=== PATIENT | female | born 1950 | race Caucasian/White ===

== ENCOUNTER → 2016-12-31 | Outpatient (CLI) | payer MEDICARE, BC ==
--- NOTE | ~2016-12-31 | MY11 ---
[facility] A Service of [facility] RADIOLOGY TEXT RESULTS PATIENT: JOLENE MERRILL LOCATION: [facility] : 48 UNIT #: [id number] AGE: [address]: Les Mondragon MD SEX: F ORDER DR: [id number] [facility] [address] [place], [place] [address] [id number] O MR#: [id number] Acc #: [id number] NAME: JOLENE MERRILL : 1950 SEX: F STUDY DATE/TIME: 12/31/2016 13:43 UNIT: [facility] ROOM: STUDY DESCRIPTION: MY Mammogram Screening Dig Mikey Attending Physician: Les Mondragon M.D. Ordering Physician: Les Mondragon M.D. Primary Care Physician: Les Mondragon M.D. MEDICAL IMAGING REPORT This report is preliminary unless electronic signature is present ADDENDUM Outside prior mammograms from [facility] have been obtained dated 06/14/2011. The left breast is unchanged from prior. On the right side, the nodule suggested only MLO view is unchanged and therefore benign. On the standard right CC view on the current study, there is still an asymmetry near the chest wall. A right exaggerated lateral CC view is still needed. True lateral view should be obtained as well. BIRADS: 0 Needs additional imaging evaluate and/or prior mammograms for comparison. JOB #: [id number] Dictated by... Dean Patel Jr., M.D. THIS IS AN ELECTRONICALLY VERIFIED REPORT Dean Patel Jr., M.D. at 01/01/2017 4:48 PM RLK/to TD: 01/01/2017 11:49 JOB #: [id number] MEDICAL IMAGING REPORT Page 1 of 1 COPY
== END | disposition home or self-care (01) ==
LOC: CWCC 12:38
DX: Z12.31 Encounter for screening mammogram for malignant neoplasm of breast (principal); R92.8 Other abnormal and inconclusive findings on diagnostic imaging of breast
CPT/HCPCS: G0202

== ENCOUNTER → 2017-01-15 | Outpatient (CLI) | payer MEDICARE, BC ==
--- NOTE | ~2017-01-15 | MY8 ---
[facility] A Service [facility] RADIOLOGY TEXT RESULTS PATIENT: JOLENE MERRILL LOCATION: [facility] : 46 UNIT #: [id number] AGE: [address]: Les Mondragon MD SEX: F ORDER DR: [id number] [facility] [address] [place], [place] [address] [id number] O MR#: [id number] Acc #: [id number] NAME: JOLENE MERRILL : 1950 SEX: F STUDY DATE/TIME: 01/15/2017 13:39 UNIT: [facility] ROOM: STUDY DESCRIPTION: MY Mammogram Dx Dig Rt Attending Physician: Les Mondragon M.D. Ordering Physician: Les Mondragon M.D. Primary Care Physician: Les Mondragon M.D. MEDICAL IMAGING REPORT This report is preliminary unless electronic signature is present EXAM Diagnostic right mammogram 01/15 INDICATIONS Early recall imaging for followup of asymmetric density along the right chest wall on recent screening mammogram. FINDINGS Exaggerated right CC view is obtained in addition to a right true lateral view. Study is reviewed with an FDA-approved CAD device. Comparison is made with 12/31/2016 and 06/14/2011. The true lateral view is benign. The exaggerated CC view is also benign. Findings on the recent screening exam are felt to be artifactual along the chest wall. The current exaggerated CC view is stable from 2010 exaggerated CC view. Findings were discussed with the patient at the time of her examination today. IMPRESSION No abnormality is confirmed. Additional views of the right breast are benign. Patient should continue with routine yearly mammographic screening. Patients over the age of 40 are entered into a reminder system with target due date for the next mammogram. A result letter will also be sent to the patient. BIRADS: 2 - benign findings Dictated by... [facility] A Service [facility] RADIOLOGY TEXT RESULTS PATIENT: JOLENE MERRILL LOCATION: [facility] : 46 UNIT #: [id number] AGE: [address]: Les Mondragon MD SEX: F ORDER DR: Dean Patel Jr., M.D. THIS IS AN ELECTRONICALLY VERIFIED REPORT Dean Patel Jr., M.D. at 01/15/2017 4:24 PM KEERTHI/azul TD: 01/15/2017 15:15 JOB #: [id number] MEDICAL IMAGING REPORT Page 1 of 1 COPY
== END | disposition home or self-care (01) ==
LOC: CMAM 12:58
DX: R92.8 Other abnormal and inconclusive findings on diagnostic imaging of breast (principal)
CPT/HCPCS: G0206

== ENCOUNTER 2017-01-22 13:33 | Emergency (ER) | payer MEDICARE, BC ==
--- NOTE | ~2017-01-22 | CT16 ---
[facility] A Service of [facility] & [facility] RADIOLOGY TEXT RESULTS PATIENT: JOLENE MERRILL LOCATION: [facility] : 46 UNIT #: [id number] AGE: [address]: Hayley Romero MD SEX: F ORDER DR: [id number] [facility] [address] [place], [place] [address] [id number] E MR#: [id number] Acc #: [id number] NAME: JOLENE MERRILL. : 1950 SEX: F STUDY DATE/TIME: 01/22/2017 19:32 UNIT: [facility] ROOM: STUDY DESCRIPTION: CT Angio Chest for PE Attending Physician: Hayley Romero M.D. Ordering Physician: Hayley Romero M.D. Primary Care Physician: Les Mondragon M.D. MEDICAL IMAGING REPORT This report is preliminary unless electronic signature is present EXAM CT angiogram of the chest INDICATIONS Shortness of breath for 2 weeks, this has gotten worsen over the past 2-3 days. She feels as if she wants to pass out. TECHNIQUE Axial CT images were obtained from the thoracic inlet through the dome of the diaphragm following the administration of intravenous contrast. Following this, 3-D reformatted images were obtained. This CT exam was performed with one or more of the following radiation dose reduction techniques: Automatic exposure control, adjustment of mA and/or kV according to patient size, and iterative reconstruction. FINDINGS No acute pulmonary thromboembolus is seen. Thoracic aorta measures within normal size limits and there is no evidence of dissection. Mediastinal lymph nodes do not appear pathologically enlarged. Background emphysematous changes are seen. Areas of consolidation are noted at the lung apices bilaterally. 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 Additional area of nodularity is seen within the left lower lobe measuring up to 1.4 x 1.0 cm. There are some tree-in-bud infiltrates identified within the left lower lobe and some mild bronchial wall thickening, which could reflect some nonspecific bronchitis. There is narrowing seen at the origin of the celiac axis secondary to some atherosclerotic plaque. No acute abnormalities are seen within the upper abdomen. Review of bony windows does not demonstrate any aggressive osseous abnormalities. [facility] A Service of [facility] RADIOLOGY TEXT RESULTS PATIENT: JOLENE MERRILL LOCATION: [facility] : 46 UNIT #: [id number] AGE: [address]: Hayley Romero MD SEX: F ORDER DR: IMPRESSION 1. No acute pulmonary thromboembolus is seen. 2. Thoracic aorta is normal in caliber. There is no evidence of dissection. 3. Background emphysematous changes with patchy areas of consolidation seen at the lung apices. 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 The patient is also noted to have some additional areas of nodularity within the left lower lobe, with the single largest measuring up to 1.4 x 1.0 cm. While this again could reflect a benign finding, given background emphysematous changes I would suggest short-term CT followup in 3 months to document resolution or stability. Please see the body of the report for any other additional incidental findings. Dictated by... Philly Ramirez M.D. THIS IS AN ELECTRONICALLY VERIFIED REPORT Philly Ramirez M.D. at 01/23/2017 10:59 AM AFF/psc TD: 01/23/2017 03:48 JOB #: [id number] MEDICAL IMAGING REPORT Page 1 of 1 COPY
--- NOTE | ~2017-01-22 | CR72 ---
[facility] A Service of [facility] & [facility] RADIOLOGY TEXT RESULTS PATIENT: JOLENE MERRILL LOCATION: [facility] : 46 UNIT #: [id number] AGE: [address]: Hayley Romero MD SEX: F ORDER DR: [id number] [facility] [address] [place], [place] [address] [id number] E MR#: [id number] Acc #: [id number] NAME: JOLENE MERRILL. : 1950 SEX: F STUDY DATE/TIME: 01/22/2017 16:53 UNIT: [facility] ROOM: STUDY DESCRIPTION: CR Chest Single View Portable Attending Physician: Hayley Romero M.D. Ordering Physician: Ed Doc Elizabeth Melgoza Primary Care Physician: Les Mondragon M.D. MEDICAL IMAGING REPORT This report is preliminary unless electronic signature is present EXAM Portable chest x-ray 01/22/2017 HISTORY Shortness of air 1 week duration. Chronic short of air. No injury. FINDINGS AP radiograph of the chest is presented. Heart [id number] limits of normal in size. Lungs hyperinflated, as on prior study. Relative lucency in the upper lung zones suggests underlying emphysema. There is no indication of acute pulmonary disease. No pleural effusion or pneumothorax. No suspicious nodule. Mild thoracolumbar scoliosis unchanged in visualized extent. No acute-appearing bony abnormality. Dictated by... Kristian Harding M.D. THIS IS AN ELECTRONICALLY VERIFIED REPORT Kristian Harding M.D. at 01/23/2017 5:58 PM JESSICA/shivam TD: 01/23/2017 00:13 JOB #: [id number] MEDICAL IMAGING REPORT Page 1 of 1 COPY
--- NOTE | ~2017-01-22 | EKG ---
PATIENT: JOLENE MERRILL UNIT #: [id number] Ventricular Rate: 67 BPM Atrial Rate: 67 BPM P-R Interval: 164 ms QRS Duration: 82 ms Q-T Interval: 408 ms QTC Calculation(Bezet): 431 ms P Loring: 74 degrees Calculated R Loring: 33 degrees Calculated T Loring: 61 degrees Diagnosis Line: Normal sinus rhythm Diagnosis Line: Normal ECG Diagnosis Line: No previous ECGs available Diagnosis Line: Confirmed by ZURI AGUILAR MD ([id number]) on Diagnosis Line: 01/26/2017 9:39:14 AM INTERPRETING MD: ДМИТРИЙ
[2017-01-22 17:12] LABS: BASOPHIL% 0.4 % (0-2.5); EOSINOPHIL# 0.1 X10e3 (0-0.7); EOSINOPHIL% 0.9 % (0.0-7.0); HEMATOCRIT 44.4 % (35.0-45.0); HEMOGLOBIN 15.1 gm/dL (12.0-16.0); LYMPHOCYTE# 1.8 X10e3 (1.0-3.5); MEAN CELL VOLUME 91.3 FL (83-96); MEAN CORPUSCULAR HEMOGLOBIN 31.1 PG (28-34); MEAN PLATELET VOLUME 7.5 FL (6.5-11.5); MONOCYTE# 0.5 X10e3 (0-1.0); MONOCYTE% 6.8 % (3.0-12.0); NEUTROPHIL% 67.9 % (40-75); PLATELET COUNT 297 X10e3 (140-420); RED BLOOD COUNT 4.87 X10e (3.90-5.30); RED CELL DISTRIBUTION WIDTH 12.8 % (11.0-15.5); WHITE BLOOD COUNT 7.4 X10e3 (4.0-10.5)
[2017-01-22 17:14] LABS: POC - CKMB <1.0 ng/mL (0.0-7.9); POC - TROPONIN <0.05 ng/mL (<=0.05)
[2017-01-22 17:23] LABS: DIFF IND NO
[2017-01-22 17:33] LABS: ALBUMIN SERUM 4.3 g/dL (3.5-5.0); BILIRUBIN, DIRECT 0.1 mg/dL (0.0-0.2); BILIRUBIN,INDIRECT 0.6 mg/dL (0.0-0.9); BILIRUBIN,TOTAL 0.7 mg/dL (0.2-2.0); BUN/CREATININE RATIO 17.5; CALCIUM SERUM 9.4 mg/dL (8.4-10.2); CREATININE SERUM 0.8 mg/dL (0.6-1.4); GLOM FILT RATE Estimated 75.8 mL/min (>60); POTASSIUM 3.2 mmol/L (3.5-5.1); PROTEIN TOTAL SERUM 7.5 g/dL (6.0-8.3)
== END 2017-01-22 21:05 | disposition home or self-care (01) ==
LOC: CED 13:33
PROVIDERS: Emergency Medicine
DX: J44.1 Chronic obstructive pulmonary disease with (acute) exacerbation (principal); I10 Essential (primary) hypertension; Z87.891 Personal history of nicotine dependence
CPT/HCPCS: 36415; 71010; 71275; 80048; 80076; 82553; 83880; 84484; 85025; 85379; 87040; 93005; 94640; 96374; 99284; J2930; Q9967